=== PATIENT | male | born 1950 | race Caucasian/White ===

== ENCOUNTER 2020-04-24 11:10 | Outpatient (CLI) | payer BC ==
--- NOTE | 2020-04-24 11:39 | RAD ---
LEFT WRIST 3 VIEWS: HISTORY: Left wrist pain FINDINGS: No acute fracture or dislocation is identified. If there is tenderness in the anatomic snuffbox and symptoms do not improve, a follow-up exam should be obtained in 7-10 days.
--- NOTE | 2020-04-24 11:39 | RAD ---
Radiograph right hip 2 views: HISTORY: 69-year-old male with nontraumatic right hip pain FINDINGS: Sclerosis, mild bony hypertrophy, and subchondral cyst formation, at the lateral acetabular roof. No significant joint space narrowing. Femoral head is not collapsed. Superior articular surface of femoral head minimally irregular. No subcapital osteophytes. Degenerative changes at right SI joint w ith vacuum joint phenomenon. High-grade disc space narrowing at lumbosacral junction. No fracture or dislocation. IMPRESSION: 1. Mild to moderate osteoarthrosis of the right hip joint. 2. Lower lumbar spondylosis
== END 2020-04-24 11:11 | disposition home or self-care (01) ==
LOC: SCSRAD 11:10
PROVIDERS: ATTEND Family Medicine
DX: M25.551 Pain in right hip (principal); M25.532 Pain in left wrist; M16.11 Unilateral primary osteoarthritis, right hip; M47.816 Spondylosis without myelopathy or radiculopathy, lumbar region
CPT/HCPCS: 36415; 80053; 80061; 81001; 83036; 84443; 85025; G0103

== ENCOUNTER 2020-06-06 09:12 | Outpatient (CLI) | payer BC ==
--- NOTE | 2020-06-06 10:12 | MRI ---
MR of the left wrist without IV contrast Exam date: June 06, 2020 HISTORY: History of osteochondrosis of the left wrist; concern for cartilage injury COMPARISON: Left wrist radiograph dated April 24, 2020 FINDINGS: Bones: No abnormal marrow signal intensity is present. There is no evidence of fracture. Ligaments: The scapholunate and lunotriquetral ligaments appear intact. The extrinsic ligaments appea r intact. Cartilage: Articular cartilage appears normal. Triangular fibrocartilage complex: Small central defect within the triangular fibrocartilage is stabl e. Peripheral attachments appear within normal limits. Dorsal and volar radioulnar ligaments appear intact. Tendons: Carpal tunnel contents appear within normal limits. The extensor tendons are normal appearin g. The FCR and FCU tendons appear within normal limits. Median nerve: Appears within normal limits Visualized musculature: Appears within normal limits. Other findings: Mild first CMC osteoarthrosis. IMPRESSION: 1. Small central perforation involving the triangular fibrocartilage. 2. Mild first CMC osteoarthrosis. 3. No additional abnormality demonstrated
== END 2020-06-06 09:13 | disposition home or self-care (01) ==
LOC: BICMRI 09:12
PROVIDERS: ATTEND Orthopaedic Surgery Hand Surgery
DX: M92.212 Osteochondrosis (juvenile) of carpal lunate [Kienbock], left hand (principal); M18.12 Unilateral primary osteoarthritis of first carpometacarpal joint, left hand; M94.8X3 Other specified disorders of cartilage, forearm

== ENCOUNTER 2021-02-13 12:48 | Outpatient (CLI) | payer BC ==
[2021-02-13 14:44] LABS: #Eosinphils 0.1 10x3/uL (0.0-0.5); #Monocytes 0.5 10x3/uL (0.0-1.1); #Neutrophils 4.6 10x3/uL (1.5-8.4); %Basophils 0.6 % (0.0-2.0); %Eosinophils 1.8 % (0.0-6.0); %Lymphocytes 15.3 % (18.0-47.0); %Monocytes 8.1 % (0.0-10.0); Hemoglobin 13.7 g/dL (13.5-17.5); Mean Corpuscular HGB CONC 34.1 g/dL (32.0-36.0); Mean Corpuscular Hemoglobin 30.9 pg (27.0-33.0); Mean Corpuscular Volume 90.5 fl (81.2-95.1); Platelet Count 216 10x3/uL (150-450); RBC Distribution Width 11.9 % (11.5-14.5); Red Blood Cell (RBC) Count 4.44 10x6/uL (4.32-5.72); White Blood Cell (WBC) Count 6.3 10x3/uL (3.5-10.5)
[2021-02-13 14:50] LABS: ALT (SGPT) 27 U/L (8-55); AST (SGOT) 25 U/L (5-34); Albumin 3.9 g/dL (3.4-4.8); Alkaline Phosphatase 68 U/L (40-110); Anion Gap 12 mmol/L (10-20); BUN (Urea Nitrogen) 23 mg/dL (8.4-25.7); Bilirubin, Total 0.5 mg/dL (0.2-1.2); Calc. Creatinine Clearance 0 mL/min (70-130); Calcium 8.9 mg/dL (7.8-10.44); Carbon Dioxide 26 mmol/L (23-31); Chloride 103 mmol/L (98-107); Globulin 2.4 g/dL (2.4-3.5); Glucose 106 mg/dL (83-110); Potassium 4.8 mmol/L (3.5-5.1); Protein, Total 6.3 g/dL (5.8-8.1); Sodium 136 mmol/L (136-145)
[2021-02-13 21:22] LABS: SARS-CoV-2 PCR by NAA Not Detected (NotDetected)
== END 2021-02-13 12:49 | disposition home or self-care (01) ==
LOC: LABBT 12:48
PROVIDERS: ATTEND Surgery
DX: Z01.818 Encounter for other preprocedural examination (principal); K40.20 Bilateral inguinal hernia, without obstruction or gangrene, not specified as recurrent; Z20.822 Contact with and (suspected) exposure to COVID-19
CPT/HCPCS: 80053; 85025; 87635; 93005; 93010; U0003; U0005

== ENCOUNTER 2021-02-18 06:55 | Day surgery (SDC) | payer BC ==
[2021-02-14 13:07] VITALS: BMI 25.5
[2021-02-18] MEDS ORDERED: Bupivacaine 0.25% HCL 30 ML VIAL ONE (08:42)
[2021-02-18] MEDS ORDERED: Lidocaine 2% w/Epinephrine 1:200K 20 ML VIAL ONE (08:42)
[2021-02-18] MEDS ORDERED: SUGAMMADEX SODIUM 200 MG/2 ML VIAL ONE (08:52)
[2021-02-18] MEDS ORDERED: Famotidine/PF 20 mg/2ml Vial ONE (08:52)
[2021-02-18] MEDS ORDERED: Fentanyl 100 MCG/2 ML VIAL ONE (08:52)
[2021-02-18] MEDS ORDERED: Metoclopramide HCl 10 MG/2 ML VIAL ONE (09:00)
[2021-02-18] MEDS ORDERED: PROPOFOL 200 MG/20 ML VIAL ONE (09:00)
[2021-02-18] MEDS ORDERED: Glycopyrrolate 0.2 MG/ML 5 ML SYRINGE ONE (09:00)
[2021-02-18] MEDS ORDERED: Lidocaine 1% PF 5 ML VIAL ONE (09:00)
[2021-02-18] MEDS ORDERED: ePHEDrine Sulfate 50 MG/10 ML VIAL ONE (09:00)
[2021-02-18] MEDS ORDERED: Rocuronium Bromide 10 MG/ML (10ML VIAL) ONE (09:00)
[2021-02-18] MEDS ORDERED: Ketorolac Tromethamine 30 MG/ML VIAL ONE (09:00)
[2021-02-18] MEDS ORDERED: Ondansetron PF 4 MG/2 ML Vial ONE (09:00)
[2021-02-18] MEDS ORDERED: Dexamethasone 20 MG/5 ML VIAL ONE (09:00)
[2021-02-18] MEDS ORDERED: Tamsulosin HCl 0.4 MG CAP ONE (12:14)
[2021-02-18] MEDS ORDERED: HYDROcodone/Acetaminophen 5/325 mg Tablet ONE (13:55)
== END 2021-02-18 14:00 | disposition home or self-care (01) ==
LOC: SDC 06:55
PROVIDERS: ATTEND Surgery
PROC: 0YUA4JZ Supplement Bilateral Inguinal Region with Synthetic Substitute, Percutaneous Endoscopic Approach (ICD-10-PCS; principal; 2021-02-18)
DX: K40.20 Bilateral inguinal hernia, without obstruction or gangrene, not specified as recurrent (principal); I10 Essential (primary) hypertension; N40.0 Benign prostatic hyperplasia without lower urinary tract symptoms; Z79.82 Long term (current) use of aspirin; Z79.899 Other long term (current) drug therapy
CPT/HCPCS: C1781; J0690; J1100; J1885; J2405; J2704; J2765; J3010; S0020; S0028